=== PATIENT | female | born 1975 | race Two or more races ===

== ENCOUNTER 2024-06-13 10:07 | Outpatient (AMB) | payer OTHER, SELFPAY ==
--- NOTE | 2024-06-13 10:10 | A.OFFVIS_ITS ---
Vital Signs 06/13/24 10:11 Height 5 ft 4 in Weight 158 lb BMI 27.1 BP 108/68 Blood Pressure Location Lt brachial Position Sitting Pulse 95 Pulse Oximetry (%) 98 Oxygen Delivery Method Room Air Intake Visit Reasons: Colonoscopy Screening Intake Note: New consult for colo screening. FMHx (multiple). Genetic testing done by Gen Surg. Patient denies any GI issues for today Supervisor Production Department Required: No Accompanied by: Self / Same As Patient Allergies No Known Allergies Allergy (Verified 06/13/24 10:09) HPI HPI Colonoscopy Screening: Details: 49 year old? female with past medical history of anemia, personal history of malignant neoplasm of the cervix, family history of CRC is here today for pre colonoscopy screening.? Patient was sent to us by her PCP.? This is her first colonoscopy screening.? Patient denies any gastrointestinal symptoms in the past or at present.? Family history of CRC. Patient reports that her mom 2 years ago was diagnosed with colon cancer via colonoscopy. Patient reports that she underwent immediate surgery to remove the cancer.? Denies history of difficulty with sedation or anesthesia in the past.? Negative for history of sleep apnea.? Denies any history of cardiac, renal, pulmonary, or hepatic disease.?? No history of infectious? diseases like hepatitis A, B, C, HIV or tuberculosis.? Patient is not on any anticoagulation [facility] Medical History (Updated 05/04/24 @ 14:40 by Gela Carter) Anemia Torn rotator cuff Tendonitis Cervical cancer Surgical History H/O cone biopsy of cervix Family History Father Mental health disorder Hypertension High cholesterol Asthma Mother Cancer Thyroid disorder Maternal Grandfather Cancer Sister Hypertension Asthma Thyroid disorder Brother Asthma Social History Household Members: Spouse Both parents involved: No Caregiver staying overnight: No Housing: House Are you a primary home care manager rn to a significant other at home: No Do you presently have visiting nurse or other home services: No 75 years or older and lives alone: No Alcohol intake: current Alcohol intake frequency: a few times a month Patient Tobacco Use Status: Never used Tobacco e-Cigarette/Vaping Use: Never Used Second Hand Smoke Exposure: No service: No Current occupational status: employed Current occupation: real estte Cognitive needs: No Hearing needs: No Vision needs: Yes (wear contacts) Review of Systems Const Denies weight gain and Denies weight loss ENT Reports no additional complaints, Denies dysphagia and Denies odynophagia Card Reports no additional complaints Resp Reports no additional complaints GI Denies abdominal pain, Denies belching, Denies melena, Denies bloating, Denies change in bowel habits, Denies dysphagia, Denies excessive flatus, Denies dyspepsia, Denies heartburn, Denies diarrhea, Denies loose stools, Denies nausea, Denies odynophagia and Denies vomiting Musc Reports no additional complaints Neuro Reports no additional complaints Psych Reports no additional complaints Endo Reports no additional complaints Physical Exam Const General: healthy appearing, no acute distress and well developed Nutritional Appearance: well nourished Orientation/consciousness: patient oriented x3 Resp Effort & Inspection: normal respiratory effort, able to speak in complete sentences, no tracheal deviation and symmetric chest movement Auscultation: clear to auscultation bilaterally Cardio Rate: regular rate GI Inspection: Yes normal to inspection and No distended Palpation (GI): Soft to palpation, not firm, nontender and No hepatosplenomegaly present Auscultation: normal bowel sounds General: Yes no CVA tenderness Back/Spine/Pelvis Back: no CVA tenderness Skin General skin exam: elasticity normal, turgor normal and dry skin Neuro General: patient oriented x3 Psych Appearance: grossly normal Mental Status: mental status grossly normal Assessment & Plan Assessment & Plan (1) Family history of colon cancer: Comment: mom Code(s): Z80.0 - Family history of malignant neoplasm of digestive organs Category: Medical (2) Screen for colon cancer: Code(s): Z12.11 - Encounter for screening for malignant neoplasm of colon Plan Patient denies any GI, cardiac or respiratory symptoms.? Denies any issues with anesthesia in the past.? Denies any history of sleep apnea.? No history infectious diseases in the past or present.? Not on any anticoagulation therapy.? Family history of CRC. Patient denies melena, hematochezia, unintentional weight loss or ribbon like stools.? Discussed at length the pre- procedure,? prep, diet & medications as well as what to expect prior, during and after the procedure.?? Stressed the importance of good bowel prep.? Recommended the use of Vaseline or Calmoseptine OTC & baby wipes with bowel movements to promote comfort.? ?Patient verbalizes understanding and agrees to plan of care.? She was given the opportunity to ask questions and all questions answered.? We will see her after the procedure.? Medications: New bisacodyl (Dulcolax (bisacodyl)) take 4 tabs at noon the day before your colonoscopy 20 mg (4 x 5 mg) PO ONCE 1 day 4 tabs 0RF constipation Z12.11 - Encounter for screening for malignant neoplasm of colon polyethylene glycol 3350 (Miralax) As directed by gastro[facility]ology department at [facility] 238 grams PO ONCE 238 grams 0RF Z12.11 - Encounter for screening for malignant neoplasm of colon Coding Level of Care Code New Pt Level 3 (08684) Diagnoses Family history of colon cancer Z80.0 Screen for colon cancer Z12.11 Time Spent (min) 40 Comment 30 minutes spent with patient and additional 10 minutes spent reviewing her records
[2024-06-13 10:11] VITALS: BP 108/68; PULSE 95; O2SAT 98; BMI 27.1
--- OUTSIDE RECORDS SUMMARY | 2024-06-13 11:49 | XMS_ITS | Clinical Summary ---
Author Organization [facility] Address [address] [place] [address] Care Team Providers Care Director Of Land Acquisition Name Role Phone Nick Bonilla Primary Care Provider [phone] Surgical History Surgery Date Site/Laterality Comments CERVICAL BIOPSY W/ LOOP ELECTRODE EXCISION PROCEDURE: HISTORICAL CONE BIOPSY Family History Medical History Relation Name Comments No Known Problems Brother No Known Problems Daughter No Known Problems Father No Known Problems Maternal Grandfather No Known Problems Maternal Grandmother No Known Problems Mother No Known Problems Other No Known Problems Paternal Grandfather No Known Problems Paternal Grandmother No Known Problems Sister 1 No Known Problems Sister 2 Breast cancer Neg Hx Relation Name Status Comments Brother Alive asthma Daughter Father Alive htn, high doe sterol Maternal Grandfather Maternal Grandmother Alive pacemak er Mother Alive hypothyroid. la p band for morbid obesity Other Paternal Grandfather Paternal Grandmother Alive pacemak er Sister 1 Alive asthma Sister 2 Alive healthy Social History Tobacco Use Types Packs/Day Years Used Date Smoking Tobacco: Former Cigarettes Q uit: 12/15/2014 Smokeless Tobacco: Never Alcohol Use Standard Drinks/Week Comments Yes 4.2 (1 standard drink = 0.6 oz p ure alcohol) Comments Unknown Sex and Gender Information Value Date Recorded Sex Assigned at Not on file Legal Sex Female 9:24 PM EST Gender Identity Not on file Sexual Orientation Not on file Obstetrics History Plan of Treatment Upcoming Encounters Date Type Department Care Team ([facility] Contact Info) Description 11/29/2024 8:00 AM EDT Appointment Radiology Department [address] [address] Health Maintenance Due Date Last Done Comments Hepatitis B Vaccines (1 of 3 - 19+ 3-dose series) 1995 Cervical Cancer Screening: Pap Smear 1997 Colorectal Cancer Screening: Colonoscopy 02/15/2022 Depression Screening 02/15/2022 HIV Screening 02/15/2022 Hepatitis C Screening 02/15/2022 Social Influencers of Health Screening 02/15/2022 COVID-19 Vaccine ( - season) 2023 DTaP,Tdap,and Td Vaccines (3 - Td or Tdap) 01/31/2024 01/30/2014, 09/22/2008 Influenza Vaccine (Season Ended) 2024 01/09/2020, 01/28/2016, 12/30/2012 Breast Cancer Screening 11/25/2025 11/26/19, 11/26/2023, 05/06/2022, Additional history exists HIB Vaccines Aged Out No longer eligi ble based on patient's age to complete this topic HPV Vaccines Aged Out No longer eligi ble based on patient's age to complete this topic Hepatitis A Vaccines Aged Out No long er eligible based on patient's age to complete this topic IPV Vaccines Aged Out No longer eligi ble based on patient's age to complete this topic MMR Vaccines Aged Out No longer eligi ble based on patient's age to complete this topic Meningococcal ACWY Vaccine Aged Out N o longer eligible based on patient's age to complete this topic Meningococcal B Vacine Aged Out No lo nger eligible based on patient's age to complete this topic Pneumococcal Vaccine: Pediatrics (0 to 5 Years) and At-Risk Patients (6 to 64 Years) Aged Out No longer eligible based on patient's age to complete this topic RSV Immunization Patients Under 20 months Aged Out No longer eligible based on patient's age to complete this topic Varicella Vaccines Aged Out No longer eligible based on patient's age to complete this topic Procedures Procedure Name Priority Date/Time Associated Diagnosis Comments SCREENING MAMMOGRAPHY BI 2-VIEW BREAST INC CAD Routine 11/26/2023 10:25 AM EDT Encounter for screening mammogram for malignant neoplasm of breast from Last 3 Months or Most Recently Relevant to Health Maintenance Results * SCREENING MAMMOGRAPHY BI 2-VIEW BREAST INC CAD (11/26/2023 10:25 AM EDT) Anatomical Region Laterality Modality Radiographic Glory ging 05/06/2022 6:22 PM EST Narrative 11/26/2023 5:43 PM EDT This is a summary report. The complete report is available in the patient's medical record. If you cannot access the medical record, please contact the sending organization for a detailed fax or copy. Exam: Screening mammogram Findings: Digital bilateral full-field screening mammography is performed with tomosynthesis and interpreted with the aid of computer-aided detection. ??Comparison is made with 04/16/2022 and as far back as 11/25/2018. Breast parenchyma is extremely dense, limiting mammographic sensitivity. ??No new suspicious mass, architectural distortion, or suspicious calcifications. Impression: No mammographic evidence of malignancy. BI-RADS 1 - negative [address] [address] Procedure Note Lorraine Alcala MD - 12/23/2023 This is a summary report. The complete report is available in thepatient's medical record. If you cannot access the medical record, pleasecontact the sending organization for a detailed fax or copy. Exam: Screening mammogram Findings: Digital bilateral full-field screening mammography is performedwith tomosynthesis and interpreted with the aid of computer-aideddetection. Comparison is made with 04/16/2022 and as far back as11/25/2018. Breast parenchyma is extremely dense, limiting mammographic sensitivity.No new suspicious mass, architectural distortion, or suspiciouscalcifications. Impression: No mammographic evidence of malignancy. BI-RADS 1 - negative [address] [id number] Wilda Jones DONOR RELATIONS OFFICER IMG XR PROCEDURES Edited Re sult - Final from Last 3 Months or Most Recently Relevant to Health Maintenance Care Teams Director Of Land Acquisition Relationship Specialty Start Date End Date Nick Bonilla DO PCP - General Internal Medicine 02/21/21
--- OUTSIDE RECORDS SUMMARY | 2024-06-13 11:49 | XMS_ITS | Data Portability ---
Author Organization [facility] Address [address] [place] [address] Care Team Providers Care Broadcast Transmitter Operator Name Role Phone MARIAM JOHN Primary Care Provider [phone] MARCIAL WONG Referring Provider Assessment Encounter Date Assessment Date Assessment LastModified by Organization Details LastModified Time 02/10/2024 02/10/2024 The above findings suggest lateral epicondylitis and biceps tendinitis. We discussed pathology and expected prognosis today. Treatment options include conservative treatment, physical therapy, and bracing. I showed them some exercises to work on today and provided a printout of home exercise. This is a self-limiting process however it often takes 6 months to one year for the symptoms to resolve. I recommend a tennis elbow counterforce brace or a wrist splint for pain control during activities. I explained to them that even if they are having discomfort, it is okay to work through the pain. I do not recommend a cortisone injection as it may provide some temporary relief but clinical data shows that it will prolong the overall course of symptoms. We discussed icing and anti-inflammator ies. I will send a prescription for meloxicam. We discussed side effects which include GI upset, she should take the medication with a meal. If she starts experience side effects, she should stop taking the medication. We discussed formal physical therapy, the patient would like to start with home exercises. I will see them back in 2 months if symptoms do not improve. All of her questions were answered, she is in agreement with plan. alexy Not available 02/10/2024 11:58:26 Plan of Treatment Reminders Order Date Submit Date Provider Last Modified By Organization Details Last Modified Time Details Appointments None recorded . Lab None recorded . Referral None recorded . Procedures None recorded . Surgeries None recorded . Imaging XR, elbow, 3 or more view 2023 [facility], [address], [place], [address], 17:14:35 Medication Orders meloxica m 15 mg tablet 2023 [id number], [address] [place], [address], 11:58:42 Patient TargetsNo targets recorded. Patient Instructions Encounter Date Encounter Id Patient Instructions Last Modified By Organization Details Last Modified Time 02/10/2024 [id number] biceps tendiniti s: exercises lschindelar Not available 02/10/2024 11:58:40 tennis elbow: exercises lschindelar Not available 02/10/2024 11:58:40 3 views of the right elbow were ordered and reviewed today, this demonstrates no acute abnormalities. There is maintained joint spaces. There is anatomic alignment of the bones. Good mineralization of the bones. [email or web address] Not available 02/10/2024 11:57:40 Reason for Referral None Reported. Problems Name Problem SNOMED Code Status Onset Date Resolution Date Notes Provider Name and Address Organization Details Recorded Time Tendinitis of right biceps brachii Active 2023 Eleni gardner MD [address], [place], [address], [place] [facility] 4 11:45:41 Lateral epicondylit is of right humerus 8289571289849 07 Active [address], [place], [address], [place] [facility] 4 11:46:07 Problem Notes None recorded. Medical Equipment None Reported. Allergies No known drug allergies Medications Name Sig Start Date Stop Date Status Note LastModified by Organization Details LastModified Time meloxicam 15 mg tablet Take 1 tablet every day by oral route. 025 active Not Available Not Available Not Avai lable Vitals Date Recorded Body height Body mass index (BMI) Body weight Provider Name and Address Organization Details Last Updated DateTime 02/10/2024 162.56 cm 24 kg/m2 [address]188.[address] [place] [facility] 02/10/2024 11:27:17 Social History Question Answer Notes LastModified by Organizat ion Details LastModified Time What Is Your Level Of Alcohol Consumption? Occasional Information not available 02/10/2024 Do You Or Have You Ever Used E-cigarettes Or Vape? Former User Of Electronic Cigarettes Information not available 02/10/2024 Do You Use Any Illicit Or Recreational Drugs? Yes Information not available 02/10/2024 Do You Or Have You Ever Used Any Other Forms Of Tobacco Or Nicotine? Yes Information not available 02/10/2024 Sex: Unknown Functional Status None recorded. Mental Status None recorded. Family History Nothing Reported. Medical History Condition Response Anemia Y Gynecological HistoryNo gynecological history recorded. Obstetrics History GPAL:G 0 P 0 0 0 0 Past Encounters Encounter ID Performer Location Encounter Start Date Encounter Closed Date Diagnosis/Indication Diagnosis SNOMED-CT Code Diagnosis ICD10 Code Diagnosis Note [id number] Eleni Rosales MD [address] [address] 02/10/2024 11:15:43 02/10/2024 11:52:33 Pain in elbow 25403417 M25.521 Tendinitis of right biceps brachii 2171246333 7107 M75.21 Lateral ep icondylitis of right humerus 1558691251 50994 M77.11 Health Concerns Section Related Observation LastModified by Organization Detai ls LastModified Time None Recorded Concern Status LastModified by Organization Details LastModified Time None Recorded Advance Directives Directive None Recorded Payers Encounter Date Sequence Insurance Name Policy Number Policy Woodard Covered Member ID Woodard Member ID Guarantor Name 02/10/2024 1 [facility] [id number] Fiona Mayers [id number] Fiona Mayers Notes Date Note Type Note Provider Name and Address Organization Details Recorded Time 02/10/2024 text/html This is a 48-year-old qhtpe-tdhe-pedvzu nt female who presents with right elbow and forearm pain. This has been going on for a number of months. She notes no discrete injury however she does work out a lot which tends to exacerbate the pain. She also works on the laptop which is painful for her. She describes pain as a dull ache. It occurs mostly during activity. She denies any nocturnal symptoms. She denies any numbness or tingling. She has tried Advil with mild relief. Eleni Rosales MD [address], [place], [address], [place] [facility] 02/10/2024 11:59:01 OBGyn Episode No OBEpisode recorded.
== END 2024-06-13 10:46 | disposition home or self-care (01) ==
LOC: HO.HGI 10:08
PROVIDERS: PCP Nurse Practitioner Family; Visit Provider Nurse Practitioner Family
DX: Z01.818 Encounter for other preprocedural examination (principal); Z12.11 Encounter for screening for malignant neoplasm of colon; Z80.0 Family history of malignant neoplasm of digestive organs
CPT/HCPCS: S0285

== ENCOUNTER → 2024-06-13 10:07 | Outpatient (BNVA) | payer OTHER, SELFPAY | PROVIDERS: PCP Nurse Practitioner Family; Visit Provider Nurse Practitioner Family ==

== ENCOUNTER 2024-10-17 11:25 | Day surgery (SDC) | payer OTHER, SELFPAY ==
--- OUTSIDE RECORDS SUMMARY | 2024-09-20 13:01 | XMS_ITS | Clinical Summary ---
Author Organization [facility] Address [address] [place] [address] Care Team Providers Care Art Handler Name Role Phone Nick Bonilla Primary Care Provider [phone] Surgical History Surgery Date Site/Laterality Comments CERVICAL [...] Upcoming Encounters Date Type Department Care Team ([facility] Contact Info) Description 11/29/2024 8:00 AM EDT Appointment Radiology Department [address] [address] Health Maintenance Due Date Last Done Comments Hepatitis B Vaccines (1 of 3 - 19+ 3-dose series) 1995 Cervical Cancer Screening: Pap Smear 1997 Colorectal Cancer Screening: Colonoscopy 02/15/2022 Depression Screening 02/15/2022 HIV Screening 02/15/2022 Hepatitis C Screening 02/15/2022 Social Influencers of Health Screening 02/15/2022 COVID-19 Vaccine (1 - season) 2023 DTaP,Tdap,and Td Vaccines (3 - Td or Tdap) 01/31/2024 01/30/2014, 09/22/2008 Influenza Vaccine (#1) 2024 0, 01/28/2016, 12/30/2012 Breast Cancer Screening 11/25/2025 11/26/19 24, 11/26/2023, 05/06/2022, Additional history exists HIB Vaccines [...] age to complete this topic Meningococcal B Vaccine Aged Out No l onger eligible based on patient's age to complete this topic Pneumococcal Vaccine: Pediatrics (0 to 5 Years) and At-Risk Patients (6 to 49 Years) Aged Out No longer eligible based [...] interpreted with the aid of computer-aided detection. Comparison is made with 04/16/2022 and as far back as 11/25/2018. Breast parenchyma is extremely dense, limiting mammographic sensitivity. No new suspicious mass, architectural distortion, or suspicious calcifications. Impression: No mammographic evidence of malignancy. BI-RADS 1 - negative [address] [address] Procedure Note Lorraine Alcala MD - 12/23/2023 [...] evidence of malignancy. BI-RADS 1 - negative [address] [address] Wilda COREAP IMG XR PROCEDURES Edited Re sult - Final from Last 3 Months or Most Recently Relevant to Health Maintenance Care Teams Art Handler Relationship Specialty Start Date End Date Nick Bonilla DO PCP - General Internal Medicine 02/21/21
--- OUTSIDE RECORDS SUMMARY | 2024-09-20 13:01 | XMS_ITS ---
Author Name [facility] Organization Unknown History of Medication Use Medication Directions Dispensed Refills Start Date End Date Stat us meloxicam 15 mg tablet a ctive Problems Problem Status Onset Date Problem Type Date of Resoluti on Source Lateral epicondylitis of right humerus active 2024-02-10 ProblemAct [facility] Tendinitis of right biceps brachii active 2024-02-10 ProblemAct [facility] Encounters Encounter Type Encounter Reason Primary Diagnosis Location Date [facility] 2024 [facility] 04/13/2024 [facility]ulatory [facility] 02/24/2024 Ambulatory [facility] 02/11/2024 Ambulatory [facility] 02/10/2024 Ambulatory [facility] 02/10/2024 Ambulatory [facility] 02/10/2024 Ambulatory [facility] 02/10/2024 Ambulatory [facility] 02/10/2024 Ambulatory [facility] 02/09/2024 Ambulatory [facility] 02/01/2024 Care Team Organization Name Specialty Phone Email Start Date End [facility] 08/30/2024
--- NOTE | 2024-10-14 10:07 | HO.ANESPROP2 ---
Documented by User: Roberta Fox NP 10/14/24 10:07 HPI - Anesthesia Eval Consult details Narrative: 49yo F for Colonoscopy PMFSH Active Problems Active Problems: All Active Problems Family history of genetic disease carrier (Acute) Mild anemia (Acute) Personal history of malignant neoplasm of cervix uteri (Acute) Family history of colon cancer (Acute) Past Medical History Medical History (Updated 05/04/24 @ 14:40 by Gela Carter) Anemia Torn rotator cuff Tendonitis Cervical cancer Family History Family History Father Mental health disorder Hypertension High cholesterol Asthma Mother Cancer Thyroid disorder Maternal Grandfather Cancer Sister Hypertension Asthma Thyroid disorder Brother Asthma Surgical History Surgical History H/O cone biopsy of cervix Social History Social History Household Members: Spouse Housing: House Are you a primary personal care home administrator to a significant other at home: No Do you presently have visiting nurse or other home services: No Alcohol intake: current Alcohol intake frequency: a few times a week Patient Tobacco Use Status: Former Tobacco user e-Cigarette/Vaping Use: Never Used Second Hand Smoke Exposure: No Use of substances other than those prescribed or required for medical reasons: Yes Substance Use Frequency: Weekly Have you been hit, kicked, punched, or otherwise hurt by someone within the past year? If so, by whom?: No Are you DNR?: No Advance Directives: No Advance Directives Information Provided: Yes Patient : No FDLMP: 09/25/2024 : No Poor oral hygiene: No service: No Current occupational status: employed Current occupation: real estte Cognitive needs: No Hearing needs: No Vision needs: Yes (wear contacts) Meds Allergies Allergy/AdvReac Type Severity Reaction Status Date / Time No Known Allergies Allergy Verified 10/17/24 11:57 Home Medications ?Medication ?Instructions ?Recorded ?Confirmed ?Last Taken ?Type medroxyprogesterone 10 mg tablet 10 mg PO DAILY 03/16/24 10/17/24 Unknown History multivitamin 1 tab PO DAILY 06/13/24 10/17/24 Unknown History Assessment and Plan Assessment Anesthesia Assessment: Chart Reviewed Documented by User: Pina Urbano MD 10/17/24 13:12 [facility] Past Medical History Medical History (Updated 05/04/24 @ 14:40 by Gela Carter) Anemia Torn rotator cuff Tendonitis Cervical cancer Family History Family History Father Mental health disorder Hypertension High cholesterol Asthma Mother Cancer Thyroid disorder Maternal Grandfather Cancer Sister Hypertension Asthma Thyroid disorder Brother Asthma Family history of problems with anesthesia: No Surgical History Surgical History H/O cone biopsy of cervix History of Problems with Anesthesia: No Social History Social History Household Members: Spouse Housing: House Are you a primary personal care home administrator to a significant other at home: No Do you presently have visiting nurse or other home services: No Alcohol intake: current Alcohol intake frequency: a few times a week Patient Tobacco Use Status: Former Tobacco user e-Cigarette/Vaping Use: Never Used Second Hand Smoke Exposure: No Use of substances other than those prescribed or required for medical reasons: Yes Substance Use Frequency: Weekly Have you been hit, kicked, punched, or otherwise hurt by someone within the past year? If so, by whom?: No Are you DNR?: No Advance Directives: No Advance Directives Information Provided: Yes Patient : No FDLMP: 09/25/2024 : No Poor oral hygiene: No service: No Current occupational status: employed Current occupation: real estte Cognitive needs: No Hearing needs: No Vision needs: Yes (wear contacts) Meds Allergies Allergy/AdvReac Type Severity Reaction Status Date / Time No Known Allergies Allergy Verified 10/17/24 11:57 Home Medications ?Medication ?Instructions ?Recorded ?Confirmed ?Last Taken ?Type medroxyprogesterone 10 mg tablet 10 mg PO DAILY 03/16/24 10/17/24 Unknown History multivitamin 1 tab PO DAILY 06/13/24 10/17/24 Unknown History Exam Airway Mallampati Class: II TM Dist: >3cm Neck ROM: Full Assessment and Plan Assessment Anesthesia Assessment: Anesthesia Plan Discussed Final Anesthetic Review Family History of Problems with Anesthesia: No History of Problems with Anesthesia: No NPO: Yes ASA Class: II Final Preanesthetic Review: No Changes in Pt Med Stat, Meds/Allgs Chart Reviewed, Consent Obtained/Reviewed and Anes Risks/Benef Reviewed Patient Risk: Low Procedure Risk: Low Anesthetic Plan Anesthetic Plan: TIVA Disposition: Standard PACU
--- NOTE | 2024-10-17 11:58 | MHC.SHP ---
Pre-Procedural Eval Section A - 24 Hr Update-Section A only Date of Service: 10/17/24 The patient is an INPATIENT: No The patient has been examined within 24 hours of the surgical procedure. The History & Physical has been completed within 30 days and I have reviewed it.: No Section B - Complete if H&P > 30 days Chief Complaint: screening, family history of colon cancer Relevant Family History (Specify if Yes): Yes Relevant Social History: None Present Medications: see Short Stay Collaborative assessment Medical History: Significant History (Anemia Torn rotator cuff Tendonitis Cervical cancer) History of Previous Operations: Relevant previous surgery/procedure and date(s) (H/O cone biopsy of cervix) Allergies: Allergies Allergy/AdvReac Type Severity Reaction Status Date / Time No Known Allergies Allergy Verified 10/17/24 11:57 Review of Systems Sugical H&P ROS: Negative: Constitution, Cardiovascular, Respiratory and Gastrointestinal Exam Surgical H&P Exam: Normal: Heart, Normal: Lungs, Normal: Extremities and Normal: Abdomen Plan Diagnosis/Plan: Unchanged I have reviewed the history and physical and performed a pertinent physical examination on my patient. No changes have occurred unless specified. Time Spent With Patient Time: Total time managing care of this patient today ____ minutes.
[2024-10-17 12:05] VITALS: BP 126/82; PULSE 79; RESP 12; TEMP 36.9; O2SAT 99; BMI 21.8
[2024-10-17] MEDS: Lactated Ringers 1,000 ML 100 ML IVCONT (12:16)
[2024-10-17 12:19] LABS: UPreg QC Valid YES
--- NOTE | 2024-10-17 14:13 | HO.OPN-COLON ---
Colonoscopy Operative Note Operative Note Date of Service: 10/17/24 Narrative: COLONOSCOPY TILL CECUM WITH SNARE POLYPECTOMY, SUBMUCOSAL INJECTION AND HEMOCLIP PLACEMENT Pre-op diagnosis: Colon cancer screening (First colon), family history of colon cancer (Mom). Post-op diagnosis:? Multiple colon polyps, melanosis coli, Diverticulosis, hemorrhoids Endoscopist:? Freya Okeefe MD Anesthesia:?MAC Consent: Indications for the procedure and potential complications of bleeding, perforation, reaction to medications and missed diagnosis were discussed with the patient and informed consent was obtained. Instrument: Olympus PCF H 190 L variable stiffness pediatric colonoscope Monitoring: Vital signs and clinical assessment, intermittent blood pressure monitoring, continuous EKG monitoring, Pulse oximetry and Carbon Dioxide monitoring were done throughout the procedure. Please see anesthesia flowsheet. Colon withdrawl time was 35 minutes. Procedure: The patient was placed in the left lateral decubitis position and pre-procedure medications were administered. After a digital rectal examination of the ano-rectum, the video colonoscope was inserted into the rectum and advanced through the colon to the cecum. The colonoscope was slowly withdrawn in a retrograde panoramic fashion and the colon mucosa was carefully examined including a retroflexed view of the rectum. Findings and interventions are described below. Procedure Difficulty: without difficulty Findings: Terminal Ileum: Not evaluated Cecum: Normal Ascending Colon: A 1.5 to 2 cms flat polyp at 70 cms. Polyp was raised with 3 cc of Eleview and removed with a hot snare and polypectomy site was marked by Sue ink. A 1.5 to 2 cms flat polyp in the distal AC. Polyp was raised with 2 cc of Eleview and removed with a hot snare. Polypectomy sites was closed with 1 hemoclip. A 10-12 mm sessile polyp in the distal ascending colon - removed with a hot snare. Melanosis coli throughout the entire colon - biopsies were obtained from the right colon. Transverse Colon: A 2 cms sessile polyp at 50 cms - removed with a hot snare. Polypectomy site was closed with 1 hemoclip and marked with Sue ink. A 12 mm sessile polyp - removed with a hot snare. A 15 mm bilobed sessile polyp. Polyp was removed with a hot snare and polypectomy site was closed with 1 hemoclip. Melanosis coli throughout the entire colon Descending Colon: Melanosis coli throughout the entire colon Sigmoid Colon: A 15 to 18 mm sessile polyp - removed with a hot snare. A 10 mm sessile polyp - removed with a hot snare. Moderate diverticulosis Rectum: Normal Ano-rectum: Moderate internal hemorrhoids Colon preparation: Good after copious irrigation. [place] Bowel Preparation Scale Right colon; 2 Transverse colon: 2 Left colon; 2 (0 = Unprepared colon segment with mucosa not seen due to solid stool that cannot be cleared. 1 = Portion of mucosa of the colon segment seen, but other areas of the colon segment not well seen due to staining, residual stool and/or opaque liquid. 2 = Minor amount of residual staining, small fragments of stool and/or opaque liquid, but mucosa of colon segment seen well. 3 = Entire mucosa of colon segment seen well with no residual staining, small fragments of stool or opaque liquid) Impression and Post Procedure Diagnosis: Colonoscopy Findings: Eight medium sized polyps were removed A few smaller polyps in the left colon - not removed due to excessive length of the procedure. Melanosis coli throughout the entire colon - biopsies were obtained from the right colon. Moderate diverticulosis seen in the sigmoid colon small hemorrhoids on retroflexed exam. Plan: Pt has a FU appointment on 11/04/24 with Rut Shaw NP Repeat Colonoscopy in 6 to 12 months (60 min procedure) if polyps are adenomatous and 10 year if polyps are hyperplastic. (Dulcolax 10 mg daily starting 5 days prior to next colonoscopy appointment) Above findings were reviewed with the patient and relevant handouts were given and the discharge area. BIOPSIES SHOWED: A. Colon, sigmoid, polypectomy: Tubular adenoma; negative for high-grade dysplasia. B. Colon, right, biopsy: Colonic mucosa with melanosis coli otherwise within normal limits; negative for active, chronic or microscopic colitis. C. Colon, ascending, polypectomy x2: Tubular adenoma (2); negative for high-grade dysplasia. D. Colon, ascending, 70 cm, polypectomy: Tubular adenoma; negative for high-grade dysplasia. E. Colon, transverse, 60 cm, polypectomy: Tubular adenoma; negative for high-grade dysplasia. F. Colon, transverse, 50 cm, polypectomy: Tubular adenoma; negative for high-grade dysplasia. G. Colon, sigmoid, 40 cm, polypectomy: Tubular adenoma; negative for high-grade dysplasia Letter sent to the patient with biopsy results. Patient was placed on the colonoscopy recall list for repeat colonoscopy in 6-12 months.
[2024-10-17 14:17] VITALS: BP 100/61; PULSE 78; RESP 14; TEMP 36.7; O2SAT 99
[2024-10-17 14:30] VITALS: BP 116/71; PULSE 78; RESP 16; O2SAT 100
[2024-10-17 14:41] VITALS: BP 109/74; PULSE 69; RESP 16; TEMP 37; O2SAT 100
== END 2024-10-17 15:09 | disposition home or self-care (01) ==
PROVIDERS: Nurse Practitioner; PCP Nurse Practitioner Family; Visit Provider Internal Medicine Gastroenterology
PROC: 0DJD8ZZ Inspection of Lower Intestinal Tract, Via Natural or Artificial Opening Endoscopic (ICD-10-PCS; CPT 45378; principal; 2024-10-17 13:00)
DX: Z12.11 Encounter for screening for malignant neoplasm of colon (principal); Z80.0 Family history of malignant neoplasm of digestive organs; D12.2 Benign neoplasm of ascending colon; D12.3 Benign neoplasm of transverse colon; D12.5 Benign neoplasm of sigmoid colon; K63.5 Polyp of colon; K63.89 Other specified diseases of intestine; K57.30 Diverticulosis of large intestine without perforation or abscess without bleeding; K64.8 Other hemorrhoids; D64.9 Anemia, unspecified; Z85.41 Personal history of malignant neoplasm of cervix uteri; Z79.899 Other long term (current) drug therapy; Z98.890 Other specified postprocedural states; Z87.891 Personal history of nicotine dependence
CPT/HCPCS: 45385; 45381; 81025; 88305; J2003; J2704

== ENCOUNTER → 2024-10-17 11:25 | Outpatient (BNV) | payer OTHER, SELFPAY | PROVIDERS: PCP Nurse Practitioner Family; Visit Provider Internal Medicine Gastroenterology | DX: Z12.11 Encounter for screening for malignant neoplasm of colon (principal); D12.2 Benign neoplasm of ascending colon; D12.3 Benign neoplasm of transverse colon; D12.5 Benign neoplasm of sigmoid colon; K63.89 Other specified diseases of intestine; K57.30 Diverticulosis of large intestine without perforation or abscess without bleeding; K64.8 Other hemorrhoids | CPT/HCPCS: 45381; 45385 ==

== ENCOUNTER 2024-12-08 10:29 | Outpatient (AMB) | payer OTHER, SELFPAY ==
--- NOTE | 2024-12-08 10:32 | MHC.PC.OV ---
Vital Signs 12/08/24 10:35 Height 5 ft 4 in Weight 130 lb 6 oz BMI 22.4 BP 117/67 Blood Pressure Location Lt brachial Position Sitting Respiration 12 Pulse 95 Pulse Source Pulse Oximeter Temp 97.2 F Temp Source Oral Pulse Oximetry (%) 98 Oxygen Delivery Method Room Air Intake Visit Reasons: Surgery on 12/27/24 Intake Note: Pre op surgery on 12/27/24. Maintenance Equipment Operator Required: No Allergies No Known Allergies Allergy (Verified 12/08/24 10:33) Medication List - Last Reconciled 12/08/24 by Wilda Jones, LOADING DOCK [employer]- multivitamin 1 tab PO DAILY Tobacco use date assessed: 12/08/24 Dental Screening Dental Screen Date: 12/08/24 Did you have a dental visit in the last 12 months?: Yes Did you have a dental problem in the last 6 months where you did not have access to dental care?: No Was dental information given to patient?: Patient has dentist HPI HPI Comments History of Present Illness Details 49 y/o F with cervical cancer s/p cone bx age 21, mild anemia, perimenopausal, Family hx of colon ca, family hx of high risk genetic mutation, former smoker Familyhx: Mom colon ca age 62, MGF renal cell ca, sister + for MUYTH gene mutation associated with polyposis syndrome (map) Surgical hx: cone bx Social: No children, , lives w/ , commercial real estate attorney; exercises regularly Health Maintenance: Colon 10/2024, multiple polyps, repeat 6- 12 mo [facility] Mammo Nov 26, 2023 @ [place] DEXA NA PAP Mar 25, 2023 @ [facility] Obn Dr Dlol Tdap 2024 Flu Specialists: CORROSION CONTROL TECHNICIAN [facility] Here today for preoperative clearance. Surgery Type: Hallux valgus (acquired), right foot Anesthesia Type: General Surgeon: Dr Echevarria Date: 12/27/24 Any past surgical procedures: Y see above Any complications from anesthesia or in post-op period:has never had general anesthesia ASA or NSAID Use: None Current smoker: No Alcohol use: No Drug use: marijuana occasional - recommend cessation METs: > 4 climb flight of stairs, golf, walk, yardwork Medical history: Asthma No COPD No Obesity BMI 22.4 Diabetes No [place] < 6 weeks, unstable angina, CHF, severe valve disease No ROS: Denies fever, chills, sick contacts, cough, chest pain, sob. Physical Exam General: Cooperative, healthy appearing, comfortable, no acute distress and well developed Orientation: Patient oriented x3 Limitations: No limitations Head: Normal to inspection Respiratory: Normal respiratory effort and able to speak in complete sentences. Clear to auscultation bilaterally Cardiovascular: Regular rate and rhythm. Normal S1 and S2 Skin: No rashes or lesions noted Neuro: Patient oriented x3 Extremities: Normal to inspection, no swelling, + PP Testing CBC and CMP as below. Per call from Surgery group - no need for EKG RCRI is Class 0 Risk Stratification: 0.5% Patient is medically cleared to proceed. Education Aspirin and NSAIDS should be discontinued one week before surgery to prevent excessive bleeding. If you are a smoker, there is increase risk of post surgical complications. Cessation is encouraged. Follow up with surgeon and all recommendations pre and post operatively. [facility] Medical History (Updated 12/08/24 @ 10:52 by Wilda Jones, [facility]) Anemia Cervical cancer Tendonitis Torn rotator cuff Surgical History H/O cone biopsy of cervix Family History Father Mental health disorder Hypertension High cholesterol Asthma Mother Cancer Thyroid disorder Maternal Grandfather Cancer Sister Hypertension Asthma Thyroid disorder Brother Asthma Social History Household Members: Spouse Both parents involved: No Caregiver staying overnight: No Housing: House Are you a primary veterinarian laboratory animal care to a significant other at home: No Do you presently have visiting nurse or other home services: No 75 years or older and lives alone: No Alcohol intake: current Alcohol intake frequency: a few times a week Patient Tobacco Use Status: Former Tobacco user e-Cigarette/Vaping Use: Never Used Second Hand Smoke Exposure: No service: No Current occupational status: employed Current occupation: real estte Cognitive needs: No Hearing needs: No Vision needs: Yes (wear contacts) Questionnaire PHQ-9 Over the last 2 weeks, how often have you been bothered by any of the following problems? 1. Little interest or pleasure in doing things: not at all 2. Feeling down, depressed, or hopeless: not at all 3. Trouble falling or staying asleep, or sleeping too much: not at all 4. Feeling tired or having little energy: not at all 5. Poor appetite or overeating: not at all 6. Feeling bad about yourself - or that you are a failure or have let yourself or your family down: not at all 7. Trouble concentrating on things, such as reading the newspaper or watching television: not at all 8. Moving or speaking so slowly that other people could have noticed. Or the opposite - being so fidgety or restless that you have been moving around a lot more than usual: not at all 9. Thoughts that you would be better off or of hurting yourself in some way: not at all Total score: 0 Depression Screening Interpretation: Negative Depression Screening Done: Yes 58732 - PHQ-9 Billing: Yes Source: Developed by Drs. Dandre Galarza, Korina Boyd, Tom Graham and colleagues, with an educational david from [employer]. Thrive Questionnaire Date Thrive assessed: 12/08/24 I am a: Patient What is your living situation today?: I have a steady place to live Within the past 12 months, did the food you bought not last and you didn't have the money to get more?: Never true Within the past 12 months, did you worry whether your food would run out before you got money to buy more?: Never true Do you have trouble paying for medicines?: No Do you have trouble getting transportation to medical appointments?: No Do you have trouble paying your heating and electricity bill?: No Do you have trouble taking care of your child, family member or friend?: No Do you have trouble with day-to-day activities such as bathing, preparing meals, shopping, managing finances, etc.?: No Are you currently unemployed and looking for a job?: No Are you interested in more education?: No Please select the resources that you would like help with: None Currently or been in a relationship where the following occur: No concerns reported THRIVE Score: 0 AUDIT C Alcohol Use Questionnaire (AUDIT-C) 1. How often do you have a drink containing alcohol?: 2-4 times a month 2. How many drinks containing alcohol do you have on a typical day when you are drinking?: 1 or 2 3. How often do you have six or more drinks on one occasion?: Never Total Score: 2 Score Reviewed/Action Taken: Yes BONNY-7 AMB Questionnaire BONNY-7 Date BONNY - 7 assessed: 12/08/24 Feeling nervous, anxious, or on edge: 0 = Not at all Not being able to stop or control worryin = Not at all Worrying too much about different things: 0 = Not at all Trouble relaxin = Not at all Being so restless that it is hard to sit still: 0 = Not at all Becoming easily annoyed or irritable: 0 = Not at all Feeling afraid as if something awful might happen: 0 = Not at all Total BONNY-7 score (0-4 normal; 5-9 mild; 10-14 moderate; 15-21 severe): 0 Source: Developed by Drs. Dandre Galarza, Korina Boyd, Tom Graham and colleagues, with an educational david from [employer]. BONNY-7 Assessment Billing BONNY-7 Assessment Tool: BONNY-7 Assessment 98871 Physical exam (Primary Care) Vital Signs: Last Vital Signs Temp 97.2 F 12/08/24 10:35 Pulse 95 12/08/24 10:35 Resp 12 12/08/24 10:35 BP 117/67 12/08/24 10:35 Pulse Ox 98 12/08/24 10:35 Oxygen Delivery Method Room Air 12/08/24 10:35 BMI result Body Mass Index 22.4 Tobacco/Smoking Status: Tobacco use Status Tobacco use date assessed 12/08/24 12/08/24 10:36 Patient Tobacco Use Status Former Tobacco user 12/08/24 10:36 e-Cigarette/Vaping Use Never Used 12/08/24 10:36 PHQ-9: PHQ-9 Score PHQ-9: Total score 0 12/08/24 10:55 Depression Screening Interpretation: Negative Thrive Assessment: Date of Thrive Assessment Date Thrive assessed 12/08/24 12/08/24 10:36 Currently or been in a relationship where the following occur: No concerns reported Office Procedures Flu Questionnaire Does the patient have a severe egg allergy?: No Does the patient have severe life threatening allergies?: No Does the patient have a fever or illness today?: No Has the patient ever had Guillain-Marshall Syndrome?: No Has the patient ever had any past reaction to a flu shot?: No Immunizations Fluarix 5030-2016 (PF) 45 mcg (15 mcg x 3)/0.5 mL IM syringe Performing Provider: CYNTHIA Rebollar Performing Location: [facility] Family Medicine Administered by: Pawan Almaraz MA on 12/08/24 10:55 Dose Route Admin Location Dispensed Lot Number Expiration Date [facility] Computer Systems Architect 0.5 mL IM Right Deltoid 0.5 mL [id number] 09/05/25 [id number] [employer] VIS Given Date VIS Provided VIS Publication Date 12/08/24 Single Vaccine 24 Eligibility Eligibility Date Funding Source Not [facility] Eligible 12/08/24 Private Results Reviewed Results Reviewed: Laboratory 12/08/24 Result Units Range Interpretation Provider Comments White Blood Count 6.0 X10*3/uL (4.8-10.8) Red Blood Count 3.85 X10*6/uL (4.20-5.50) Low Hemoglobin 12.2 g/dl (12.0-16.0) Hematocrit 36.4 % (37.0-47.0) Low Mean Corpuscular Volume 94.5 fL (80.0-98.0) Mean Corpuscular Hemoglobin 31.7 pg (27.0-33.0) Mean Corpuscular Hemoglobin Concent 33.5 g/dl (31.0-35.0) Red Cell Distribution Width 11.7 % (11.0-16.0) Platelet Count 214 X10*3/uL (160-400) Mean Platelet Volume 11.5 fL (9.4-12.3) Nucleated RBC Absolute Count (auto) 0.000 X10*3/uL (0.0-0.012) Nucleated Red Blood Cells % (auto) 0.0 /100WBC (0.0-0.2) Sodium Level 140 mmol/L (135-145) Potassium Level 4.0 mmol/L (3.3-5.1) Chloride Level 109 mmol/L (96-108) High Carbon Dioxide Level 25 mmol/L (22-29) Anion Gap 10 (12-20) Low Blood Urea Nitrogen 15 mg/dL (9-16) Creatinine 0.80 mg/dL (0.5-1.4) Estimated Creatinine Clearance Calc Not Reportable Estimat Glomerular Filtration Rate > 60 Random Glucose 70 mg/dL (60-115) Calcium Level 9.2 mg/dL (8.4-10.2) Total Bilirubin 0.2 mg/dL (0.0-1.0) Aspartate Amino Transf (AST/SGOT) 28 U/L (5-31) Alanine Aminotransferase (ALT/SGPT) 25 U/L (0-31) Alkaline Phosphatase 41 U/L (39-117) Total Protein 7.0 g/dL (6.5-8.0) Albumin 4.3 g/dL (3.5-5.0) Coding Level of Care Code Est Pt Level 4 (59613) Complex EM visit Add On G2211 Diagnoses Pre-op exam Z01.818 Hallux valgus (acquired), right foot M20.11 Influenza vaccination administered at current visit Z23 Additional Codes BONNY-7 Assessment Billing - BONNY-7 Assessment Tool: BONNY-7 Assessment 66429 ([id number]) PHQ-9 - 68305 - PHQ-9 Billing: Yes ([id number]) Assessment & Plan Assessment & Plan (1) Pre-op exam: Code(s): Z01.818 - Encounter for other preprocedural examination Plan: Patient is medically cleared to proceed. (2) Hallux valgus (acquired), right foot: Code(s): M20.11 - Hallux valgus (acquired), right foot Category: Medical (3) Influenza vaccination administered at current visit: Code(s): Z23 - Encounter for immunization Category: Medical Plan . Orders: Orders Complete Blood Count no Diff Today Z01.818 - Encounter for other preprocedural examination Comprehensive Met. Panel Today Z01.818 - Encounter for other preprocedural examination Influenza 5324-1301 Immunization Today Z23 - Encounter for immunization
[2024-12-08 10:35] VITALS: BP 117/67; PULSE 95; RESP 12; TEMP 36.2; O2SAT 98; BMI 22.4
--- OUTSIDE RECORDS SUMMARY | 2024-12-08 12:13 | XMS_ITS | Clinical Summary ---
Author Organization [facility] [address] [place] [address] [place] [address] Phone Care Team Providers Care Analyst Business Analysis Name Role Phone Nick Bonilla DO Primary Care Provider [phone] Encounters Date Type Department Care Team Description 11/29/2024 8:00 AM EDT - 11/29/2024 11:59 PM EDT Hospital Encounter Radiology Department - [address] [phone] Encounter for screening mammogram for breast cancer Discharge Disposition: Home or Self Care from Last 3 Months Surgical History Surgery Date Site/Laterality Comments CERVICAL [...] = 0.6 oz p ure alcohol) Comments No Sex and Gender Information Value Date Recorded Sex Assigned at Not on file Legal Sex Female 9:24 PM EST Gender Identity Not on file Sexual Orientation Not on file Obstetrics History Para Term AB IAB SAB Ectopic Multiple Livin g Live Births 0 0 0 0 Plan of Treatment Upcoming Encounters Date Type Department Care Team (Latest Contact Info) Description 12/22/2024 10:30 AM EDT Appointment Radiology Department - [address] [phone] 12/22/2024 10:55 AM EDT Appointment Radiology Department - [address] [phone] 12/27/2024 7:30 AM EDT Hospital Encounter [facility] OR [address] [place] [phone] Yakov Echevarria DPM [address] [place] [address] 12/27/2024 7:30 AM EDT - 12/27/2024 9:30 AM EDT Surgery [facility] OR [address] [place] [phone] Yakov Echevarria DPM [address] [place] [address] [id number] RIGHT BUNIONECTOMY LAPIDUS [23559 (CPT )] Scheduled Procedures Name Priority Associated Diagnoses Date/Ti me BUNIONECTOMY LAPIDUS Hallux valgus, right Right foot pain 12/27/2024 7:30 AM EDT Health Maintenance Due Date Last Done Comments Colorectal Cancer Screening: Colonoscopy 1976 Hepatitis B Vaccines (1 of 3 - 19+ 3-dose series) 1995 Cervical Cancer Screening: Pap Smear 1997 HIV Screening 02/15/2022 Hepatitis C Screening 02/15/2022 Social Influencers of Health Screening 02/15/2022 Depression Screening 03/09/2024 COVID-19 Vaccine ( season) 2024 01/22/2022, 02/08/2021, 08/07/2020, Additional history exists Influenza Vaccine (#1) 2024 4, 01/01/2023, 01/22/2022, Additional history exists Breast Cancer Screening 11/29/2026 11/30/19, 11/26/2023, 11/26/2023, Additional history exists DTaP,Tdap,and Td Vaccines (4 - Td or Tdap) 02/15/2034 02/16/2024, 01/30/2014, 09/22/2008 RSV Immunization Adult Patients (1 - 1-dose 75+ series) 2051 HIB Vaccines Aged Out No longer eligi [...] Procedure Name Priority Date/Time Associated Diagnosis Comments MG MAMMO DIGITAL SCREENING W WILVER BILAT Routine 11/29/2024 8:14 AM EDT Encounter for screening mammogram for breast cancer from Last 3 Months Results * (ABNORMAL) MG Mammo Digital Screening w Wilver bilat (11/29/2024 8:14 AM EDT) Anatomical Region Laterality Modality Breast Bilateral Mammography 11/30/2024 5:00 PM EDT Impressions 11/30/2024 5:05 PM EDT 1. Left: No mammographic evidence of malignancy 2. Right: Indeterminate upper inner middle depth focal asymmetry 3. Heterogeneous breast parenchyma BI-RADS CATEGORY: 0 - INCOMPLETE - NEED ADDITIONAL IMAGING EVALUATION RECOMMENDATION: Additional right breast imaging recommended. Right breast CC and MLO spot compression, full-field ML, targeted ultrasound Mammo Location: [facility], [address] [place] [address], [phone], . -------- FINAL REPORT -------- Dictated By: Nico Pang Dictated Date: 11/30/2024 17:00 ET Assigned Physician: Nico Pang Reviewed and Electronically Signed By: Nico Pang Signed Date: 11/30/2024 17:05 ET Workstation ID: [id number] Transcribed By: Self Edit Transcribed Date: 11/30/2024 17:00 ET Narrative 11/30/2024 5:05 PM EDT A BILATERAL DIGITAL 3D SCREENING MAMMOGRAPHY HISTORY: Routine screening. No family history of breast cancer. COMPARISON: Multiple priors dating back to 01/31/2020 Technique: Bilateral full field digital mammography (3D) was performed using standard CC and MLO projections CAD was used to evaluate this mammogram. FINDINGS: Right: Indeterminate upper inner middle depth focal asymmetry Left: No suspicious masses, groups of microcalcification or areas of architectural distortion identified. Stable typically benign parenchymal asymmetries. BREAST DENSITY: C - The breasts are heterogeneously dense which may obscure small masses. Procedure Note Nico Pang MD - 11/30/2024 A BILATERAL DIGITAL 3D SCREENING MAMMOGRAPHY HISTORY: Routine screening. No family history of breast cancer. COMPARISON: Multiple priors dating back to 01/31/2020 Technique: Bilateral full field digital mammography (3D) was performedusing standard CC and MLO projections CAD was used to evaluate this mammogram. FINDINGS: Right: Indeterminate upper inner middle depth focal asymmetry Left: No suspicious masses, groups of microcalcification or areas ofarchitectural distortion identified. Stable typically benign parenchymalasymmetries. BREAST DENSITY: C - The breasts are heterogeneously dense which mayobscure small masses. IMPRESSION: 1. Left: No mammographic evidence of malignancy 2. Right: Indeterminate upper inner middle depth focal asymmetry 3. Heterogeneous breast parenchyma BI-RADS CATEGORY: 0 - INCOMPLETE - NEED ADDITIONAL IMAGING EVALUATION RECOMMENDATION: Additional right breast imaging recommended. Right breast CC and MLO spotcompression, full-field ML, targeted ultrasound Mammo Location: [facility], [address] [place] [address], [id number], . -------- FINAL REPORT -------- Dictated By: Nico Pnag Dictated Date: 11/30/2024 17:00 ET Assigned Physician: Nico Pang Reviewed and Electronically Signed By: Nico Pang Signed Date: 11/30/2024 17:05 ET Workstation ID: [id number] Transcribed By: Self Edit Transcribed Date: 11/30/2024 17:00 ET Nick Bonilla DO IMG BI PROCEDURES Final Result from Last 3 Months Insurance CIG Care Teams Analyst Business Analysis Relationship Specialty Start Date End Date Nick Bonilla DO [address] [place] [phone] PCP - General Internal Medicine 02/21/21
== END 2024-12-08 10:56 | disposition home or self-care (01) ==
LOC: HO.HMCFM 10:29
PROVIDERS: PCP Nurse Practitioner Family; Visit Provider Nurse Practitioner Family
DX: Z01.818 Encounter for other preprocedural examination (principal); M20.11 Hallux valgus (acquired), right foot; Z23 Encounter for immunization

== ENCOUNTER 2024-12-08 10:29 | Outpatient (REF) | payer OTHER, SELFPAY ==
[2024-12-08 14:41] LABS: Hematocrit 36.4 % (37.0-47.0); Hemoglobin 12.2 g/dl (12.0-16.0); Mean Corpuscular HGB Conc 33.5 g/dl (31.0-35.0); Mean Corpuscular Hemoglobin 31.7 pg (27.0-33.0); Mean Corpuscular Volume 94.5 fL (80.0-98.0); NRBC Abs Auto 0.000 X10*3/uL (0.0-0.012); NRBC Pct Auto 0.0 /100WBC (0.0-0.2); Platelet Count 214 X10*3/uL (160-400); Red Blood Count 3.85 X10*6/uL (4.20-5.50); White Blood Count 6.0 X10*3/uL (4.8-10.8)
[2024-12-08 15:22] LABS: Alanine Aminotransferase 25 U/L (0-31); Albumin Level 4.3 g/dL (3.5-5.0); Alkaline Phosphatase 41 U/L (39-117); Anion Gap 10 (12-20); Aspartate Amino Transferase 28 U/L (5-31); Blood Urea Nitrogen 15 mg/dL (9-16); Calcium 9.2 mg/dL (8.4-10.2); Carbon Dioxide 25 mmol/L (22-29); Chloride 109 mmol/L (96-108); Estimated Glomerular Filt Rate > 60; Potassium 4.0 mmol/L (3.3-5.1); Sodium 140 mmol/L (135-145); Total Protein 7.0 g/dL (6.5-8.0)
== END 2024-12-08 10:30 | disposition home or self-care (01) ==
LOC: HO.WFDLDS 10:29
PROVIDERS: PCP Nurse Practitioner Family; Visit Provider Nurse Practitioner Family
DX: Z23 Encounter for immunization (principal); Z01.818 Encounter for other preprocedural examination; M20.11 Hallux valgus (acquired), right foot; Z79.899 Other long term (current) drug therapy
CPT/HCPCS: 36415; 80053; 85027; 90471; 90656; 96127

== ENCOUNTER 2025-02-20 08:04 | Outpatient (REF) | payer OTHER, SELFPAY ==
[2025-02-20 11:46] LABS: Alanine Aminotransferase 26 U/L (0-31); Albumin Level 4.5 g/dL (3.5-5.0); Alkaline Phosphatase 46 U/L (39-117); Anion Gap 10 (12-20); Aspartate Amino Transferase 30 U/L (5-31); Blood Urea Nitrogen 14 mg/dL (9-16); Calcium 9.4 mg/dL (8.4-10.2); Carbon Dioxide 25 mmol/L (22-29); Chloride 109 mmol/L (96-108); Cholesterol 185 mg/dL (<200); Estimated Glomerular Filt Rate > 60; HDL Cholesterol 89 mg/dL (>40); Potassium 4.2 mmol/L (3.3-5.1); Sodium 140 mmol/L (135-145); Total Protein 7.0 g/dL (6.5-8.0); Triglycerides 62 mg/dL (<150)
== END 2025-02-20 08:05 | disposition home or self-care (01) ==
LOC: HO.WFDLDS 08:04
PROVIDERS: Visit Provider Nurse Practitioner Family
DX: Z00.00 Encounter for general adult medical examination without abnormal findings (principal); D64.9 Anemia, unspecified; Z15.89 Genetic susceptibility to other disease; Z80.0 Family history of malignant neoplasm of digestive organs; Z85.41 Personal history of malignant neoplasm of cervix uteri; Z92.89 Personal history of other medical treatment; Z98.890 Other specified postprocedural states; Z84.81 Family history of carrier of genetic disease; Z79.899 Other long term (current) drug therapy
CPT/HCPCS: 36415; 80053; 80061; 83036; 96127

== ENCOUNTER 2025-02-20 08:04 | Outpatient (AMB) | payer OTHER, SELFPAY ==
--- NOTE | 2025-02-20 08:06 | A.OFFPC_ITS ---
Vital Signs 02/20/25 08:10 Height 5 ft 4 in Weight 132 lb 2 oz BMI 22.7 BP 99/66 Blood Pressure Location Lt brachial Position Sitting Respiration 12 Pulse 78 Pulse Source Pulse Oximeter Temp 97.5 F Temp Source Oral Pulse Oximetry (%) 98 Oxygen Delivery Method Room Air Intake Visit Reasons: 1 year cpe Intake Note: CPE. Paralegal Assistant Required: No Allergies No Known Allergies Allergy (Verified 02/20/25 08:06) Medication List - Last Reconciled 02/20/25 by ANN-MARIE Rebollar-BC multivitamin 1 tab PO DAILY Tobacco use date assessed: 02/20/25 Dental Screening Dental Screen Date: 02/20/25 Did you have a dental visit in the last 12 months?: Yes Did you have a dental problem in the last 6 months where you did not have access to dental care?: No Was dental information given to patient?: Patient has dentist HPI HPI Comments History of Present Illness Details 49 y/o F with cervical cancer s/p cone b x age 21, mild anemia, perimenopausal, Family hx of colon ca, family hx of high risk genetic mutation, former smoker, + MUYTH gene mutation Family hx: Mom colon ca age 62, MGF renal cell ca, sister + for MUYTH gene mutation associated with polyposis syndrome (map) Surgical hx: cone bx , Hallux valgus (acquired), right foot 2024, Social: No children, , 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 Heterozygous MUTYH gene mutation: - The patient underwent genetic testing and was found to be heterozygous for a MUTYH gene mutation, similar to her sister. - This result was communicated to her ga stroenterology team, who initially did not recognize her as high-risk but subsequently scheduled a follow-up colonoscopy after she provided them with the genetic report. - She has a family history of colon canc er and her sister has MUTYH-associated polyposis. Personal history of colonic polyps: - A prior colonoscopy revealed 8 polyps. - She has a repeat colonoscopy scheduled for April 21. Screening for malignant neoplasm of breast: - The patient has a history of dense dillon asts and had an abnormal mammogram in December, which required additional imaging. - The additional imaging was normal. - She is scheduled for a breast MRI. - Her genetic test showed a breast cance r score of 7%, which is considered average risk. - Her sister had a breast cancer gene mu tation which the patient does not have. Screening for malignant neoplasm of cervix: - The patient has a history of cervical cancer and is due for a Pap smear. - In 2024, she underwent multiple programming intern al ultrasounds and three hysteroscopies for a finding near her ovary, which ultimately were benign. Social History - Per patient report, is a former smoker - Employment: Works in real estate - Functional Status: Reports being very active but mobility was limited for 7 weeks post-surgery, requiring assistance with driving. - Takes a multivitamin Health Maintenance - Mammogram was performed in December fol lowed by additional imaging which was normal. - A repeat colonoscopy is scheduled for April 21. - Current on tetanus (2024) and influenz a immunizations. - Practices regular skin self-checks for moles with her . - Performs self breast exams. Review of Systems - Constitutional: Denies issues. - Eyes: Reports worsening vision in the right eye; wears contacts. - Skin: Denies issues, problems, or conc erns. - Gastrointestinal: Reports normal bowel movements. Denies abdominal pain. - Genitourinary: Reports normal urinatio n. - Musculoskeletal: Reports post-surgical swelling in one foot and states the operated foot hurts more than the other. Physical Exam General: Well developed, well nourished, in no acute distress. Appears stated age. Head: Normocephalic, atraumatic. Eyes: Pupils are equal, round and reactive to light and accommodation. Conjunctivae are clear. Scleras nonicteric bilat. Vision grossly normal Ears: TMs clear AU, EACS WNL Nose: Patent, without discharge. Neck: No carotid bruit bilat. Supple, no adenopathy or thyromegaly. Breast: Edu on SBE. Lungs: Clear to auscultation bilaterally. No rales, rhonchi or wheeze noted. Good air flow in all [place]en. Heart: Regular rate and rhythm. No murmurs, click, rubs or gallops are noted. Abdomen: Bowel sounds present in all quadrants. The abdomen is soft, nontender, with no masses or organomegaly noted. No hernias are noted. : Deferred. Reviewed recommendations for routine SENIOR BI DEVELOPER. Patient reports previous internal ultrasounds and hysteroscopies with normal results. Pulses: Peripheral pulses are equal and palpable bilaterally. Extremities: No clubbing, cyanosis nor edema is noted. Patient reports checking for moles and ticks due to pets. Neurologic: Gait and station normal. Cranial Nerves 2-12 intact. Motor strength grossly symmetrical and intact. No sensory loss. Balance normal. Skin: No rashes, ulcers, or lesions noted. Turgor is good. Skin color is good. Hair and nails are without abnormalities. Patient reports regular skin checks with spouse. Psych: Normal eye contact, affect and mood appropriate, and normal interactions. Patient is alert and appropriate to context. Results - Genetic Testing: Positive for heterozy gous MUTYH gene mutation. - Breast Cancer Score: 7% (average risk) . - Mammogram: Abnormal, requiring additio nal imaging whcih was normal - Additional Breast Imaging: Normal. - Hysteroscopy: Three performed, all fin dings were benign. - Labs today pending Medical Decision Making The patient is a 49-year-old female here for a complete physical exam, health maintenance, and pre-operative clearance for her second foot surgery scheduled on April 25. Her medical history is notable for a heterozygous MUTYH gene mutation, which places her at high risk for colon cancer, warranting increased surveillance. She has a repeat colonoscopy scheduled for April 21, and it has been determined that it is safe to proceed with both the colonoscopy and her foot surgery within the same week, as the colonoscopy uses conscious sedation, not general anesthesia. Her breast health is being monitored due to dense breast tissue and a previously abnormal mammogram, which requires a breast MRI, though follow-up imaging was normal and genetic risk is average. Today's plan includes ordering necessary lab work (cholesterol, CMP, diabetes screen) for an external form and ordering a CBC to be drawn closer to her surgery date as part of her pre-operative assessment. She will schedule her next annual exam and a separate pre-op visit for late March or early April. The patient remains up to date with other health maintenance, including immunizations and self-exams, and her physical exam today is unremarkable. Plan 1. Encounter For General Adult Medical E xamination - Labs for cholesterol, kidney and liver function, and a diabetes screen were ordered today to complete a required form. - A future lab order for a CBC will be p laced, to be drawn within 30 days of her upcoming surgery. - The patient will schedule her next [facility] physical exam. 2. Pre-Procedural Examination - The patient has a second foot surgery scheduled for April 25. - She will book a pre-op visit for march or early April. - Pre-operative labs, specifically a CBC , will be ordered for a future date closer to the surgery. 3. High-Risk Screening Colonoscopy - Due to her heterozygous MUTYH gene mut ation and history of polyps, she will proceed with her scheduled colonoscopy on April 21. - It is safe for her to undergo consciou s sedation for the colonoscopy four days before her surgery under general anesthesia. 4. Screening For Malignant Neoplasm Of B reast - Given her history of dense breasts, sh e requires a breast MRI. - Continue with self-breast exams despit e the density of her breast tissue. 5. Encounter For Screening For Malignant Neoplasm Of Cervix -active w/ director of user experience Patient Instructions - Go to the lab today to get your blood work done for the form. - The completed form will be left at the medical front desk specialist for you to pickle processor, likely by tomorrow. - Stop at the medical front desk specialist to book two [facility] appointments: your next annual physical and a pre-op visit for your upcoming surgery. - Schedule your pre-op visit for or early April. - You do not need to reschedule your col onoscopy; it is safe to have it on April 21 before your surgery on April 25. - Continue doing your monthly self-breas t exams. - Continue having your check you r back for any new or changing moles. - You can view your lab results on the [employer] portal. Consent Patient was informed and verbally consented to the use of an ambient scribe for clinic note documentation during this visit. [facility] Medical History (Updated 02/20/25 @ 08:30 by Wilda Jones [facility]) Anemia Cervical cancer Tendonitis Torn rotator cuff Surgical History (Updated 02/20/25 @ 08:13 by ANN-MARIE RebollarEUGENE) H/O cone biopsy of cervix S/P foot surgery, right (~2024) Family History Father Mental health disorder Hypertension High cholesterol Asthma Mother Cancer Thyroid disorder Maternal Grandfather Cancer Sister Hypertension Asthma Thyroid disorder Brother Asthma Social History Household Members: Spouse Both parents involved: No Caregiver staying overnight: No Housing: House Are you a primary lawn care worker to a significant other at home: No Do you presently have visiting nurse or other home services: No 75 years or older and lives alone: No Alcohol intake: current Alcohol intake frequency: a few times a week Patient Tobacco Use Status: Former Tobacco user e-Cigarette/Vaping Use: Never Used Second Hand Smoke Exposure: No service: No Current occupational status: employed Current occupation: real estte Cognitive needs: No Hearing needs: No Vision needs: Yes (wear contacts) Questionnaire PHQ-9 Over the last 2 weeks, how often have you been bothered by any of the following problems? 1. Little interest or pleasure in doing things: not at all 2. Feeling down, depressed, or hopeless: not at all 3. Trouble falling or staying asleep, or sleeping too much: not at all 4. Feeling tired or having little energy: not at all 5. Poor appetite or overeating: not at all 6. Feeling bad about yourself - or that you are a failure or have let yourself or your family down: not at all 7. Trouble concentrating on things, such as reading the newspaper or watching television: not at all 8. Moving or speaking so slowly that other people could have noticed. Or the opposite - being so fidgety or restless that you have been moving around a lot more than usual: not at all 9. Thoughts that you would be better off or of hurting yourself in some way: not at all Total score: 0 Depression Screening Interpretation: Negative Depression Screening Done: Yes 23185 - PHQ-9 Billing: Yes Source: Developed by Drs. Dandre Galarza, Korina Boyd, Tom Graham and colleagues, with an educational david from [employer]. Thrive Questionnaire Date Thrive assessed: 02/20/25 I am a: Patient What is your living situation today?: I have a steady place to live Within the past 12 months, did the food you bought not last and you didn't have the money to get more?: Never true Within the past 12 months, did you worry whether your food would run out before you got money to buy more?: Never true Do you have trouble paying for medicines?: No Do you have trouble getting transportation to medical appointments?: No Do you have trouble paying your heating and electricity bill?: No Do you have trouble taking care of your child, family member or friend?: No Do you have trouble with day-to-day activities such as bathing, preparing meals, shopping, managing finances, etc.?: No Are you currently unemployed and looking for a job?: No Are you interested in more education?: No Please select the resources that you would like help with: None Currently or been in a relationship where the following occur: No concerns reported THRIVE Score: 0 AUDIT C Alcohol Use Questionnaire (AUDIT-C) 1. How often do you have a drink containing alcohol?: 2-4 times a month 2. How many drinks containing alcohol do you have on a typical day when you are drinking?: 1 or 2 3. How often do you have six or more drinks on one occasion?: Never Total Score: 2 Score Reviewed/Action Taken: Yes BONNY-7 AMB Questionnaire BONNY-7 Date BONNY - 7 assessed: 02/20/25 Feeling nervous, anxious, or on edge: 1 = Several days Not being able to stop or control worryin = Several days Worrying too much about different things: 1 = Several days Trouble relaxin = Several days Being so restless that it is hard to sit still: 1 = Several days Becoming easily annoyed or irritable: 0 = Not at all Feeling afraid as if something awful might happen: 0 = Not at all Total BONNY-7 score (0-4 normal; 5-9 mild; 10-14 moderate; 15-21 severe): 5 Source: Developed by Korina Meek, Tom Graham and colleagues, with an educational david from [employer]. BONNY-7 Assessment Billing BONNY-7 Assessment Tool: BONNY-7 Assessment 25721 Physical exam (Primary Care) Vital Signs: Last Vital Signs Temp 97.5 F 02/20/25 08:10 Pulse 78 02/20/25 08:10 Resp 12 02/20/25 08:10 BP 99/66 02/20/25 08:10 Pulse Ox 98 02/20/25 08:10 Oxygen Delivery Method Room Air 02/20/25 08:10 BMI result Body Mass Index 22.7 Tobacco/Smoking Status: Tobacco use Status Tobacco use date assessed 02/20/25 02/20/25 08:09 Patient Tobacco Use Status Former Tobacco user 02/20/25 08:09 e-Cigarette/Vaping Use Never Used 02/20/25 08:09 PHQ-9: PHQ-9 Score PHQ-9: Total score 0 02/20/25 08:13 Depression Screening Interpretation: Negative Thrive Assessment: Date of Thrive Assessment Date Thrive assessed 02/20/25 02/20/25 08:09 Currently or been in a relationship where the following occur: No concerns reported Coding Level of Care Code Est Pt Prev Care 40-64y(28400) Add On Preventative Visit Only Diagnoses Adult general medical exam Z00.00 Family history of genetic disease carrier Z84.81 History of colonoscopy Z98.890 Mild anemia D64.9 Family history of colon cancer Z80.0 Personal history of malignant neoplasm of cervix uteri Z85.41 Laboratory exam ordered as part of routine general medical examination Z00.00 History of mammogram Z92.89 History of Papanicolaou smear of cervix Z92.89 Gene mutation Z15.89 Additional Codes BONNY-7 Assessment Billing - BONNY-7 Assessment Tool: BONNY-7 Assessment 26258 ([id number]) PHQ-9 - 08022 - PHQ-9 Billing: Yes ([id number]) Assessment & Plan Assessment & Plan (1) Adult general medical exam: Onset Date: ~02/20/25 Code(s): Z00.00 - Encounter for general adult medical examination without abnormal findings Category: Medical (2) Family history of genetic disease carrier: Comment: sister + for MUYTH gene mutation associated with polyposis syndrome (map) Code(s): Z84.81 - Family history of carrier of genetic disease Category: Medical (3) History of colonoscopy: Onset Date: ~10/2024 Code(s): Z98.890 - Other specified postprocedural states Category: Surgical (4) Mild anemia: Code(s): D64.9 - Anemia, unspecified Category: Medical (5) Family history of colon cancer: Comment: mom Code(s): Z80.0 - Family history of malignant neoplasm of digestive organs Category: Medical (6) Personal history of malignant neoplasm of cervix uteri: Code(s): Z85.41 - Personal history of malignant neoplasm of cervix uteri Category: Medical (7) Laboratory exam ordered as part of routine general medical examination: Code(s): Z00.00 - Encounter for general adult medical examination without abnormal findings Category: Medical (8) History of mammogram: Onset Date: ~12/2024 Code(s): Z92.89 - Personal history of other medical treatment Category: Medical (9) History of Papanicolaou smear of cervix: Onset Date: ~2023 Code(s): Z92.89 - Personal history of other medical treatment Category: Medical (10) Gene mutation: Onset Date: ~2024 Comment: + for MUYTH gene mutation associated with polyposis syndrome (map) Code(s): Z15.89 - Genetic susceptibility to other disease Category: Medical Plan . Orders: Orders Comprehensive Met. Panel Today Z00.00 - Encounter for general adult medical examination without abnormal findings Hemoglobin A1c Today Z00.00 - Encounter for general adult medical examination without abnormal findings Lipid Panel Today Z00.00 - Encounter for general adult medical examination without abnormal findings Patient Instructions: Health screenings for women You should visit your health care provider from time to time, even if you are healthy. The purpose of these visits is to: Screen for medical issues Assess your risk for future medical problems Encourage a healthy lifestyle Update vaccinations and other preventive care services Help you get to know your provider in case of an illness Information Even if you feel fine, you should still see your provider for regular checkups. These visits can help you avoid problems in the future. For example, the only way to find out if you have high blood pressure is to have it checked regularly. High blood sugar and high cholesterol levels also may not have any symptoms in the early stages. A simple blood test can check for these conditions. There are specific times when you should see your provider or receive specific health screenings. The [place] Preventive Services Task Force publishes a list of recommended screenings. Below are screening guidelines for women ages 18 to 39. BLOOD PRESSURE SCREENING Your blood pressure should be checked at least once every 3 to 5 years if: Your blood pressure is in the normal range (top number less than 120 mm Hg and bottom number less than 80 mm Hg) You don't have risk factors for high blood pressure Ask your provider if you need your blood pressure checked more often if: The top number is 120 to 129 mm Hg or the bottom number is 70 to 79 mm Hg You have diabetes, heart disease, kidney problems, are overweight, or have certain other health conditions You have a first-degree relative with high blood pressure You are Black You had high blood pressure during a If the top number is 130 mm Hg or greater or the bottom number is 80 mm Hg or greater, this is considered stage 1 hypertension. Schedule an appointment with your provider to learn how you can reduce your blood pressure. Watch for blood pressure screenings in your area. Ask your provider if you can stop in to have your blood pressure checked. BREAST CANCER SCREENING Experts do not agree about the benefits of breast self-exams in finding breast cancer or saving lives. Talk to your provider about what is best for you. A screening mammogram is not recommended for most women under age 40. Your provider may discuss and recommend mammograms, MRI scans, or ultrasounds if you have an increased risk for breast cancer, such as: A mother or sister who had breast cancer at a young age (most often starting screening earlier than the age the close relative was diagnosed) You carry a high-risk genetic marker CERVICAL CANCER SCREENING Cervical cancer screening should start at age 21 years unless your provider advises otherwise. After the first test: Women ages 21 through 29 should have a Pap test every 3 years. Exoprts do not agree on whether HPV testing is recommended for this age group. Women ages 30 through 65 should be screened with either a Pap test every 3 years or the HPV test every 5 years or both tests every 5 years (called cotesting ). Women who have been treated for precancer (cervical dysplasia) should continue to have Pap tests for 20 years after treatment or until age 65, whichever is longer. If you have had your uterus and cervix removed (total hysterectomy), and you have not been diagnosed with cervical cancer or precancer (high grade cervical neoplasia), you do not need cervical cancer screening. CHOLESTEROL SCREENING Cholesterol screening should begin at: Age 45 for women with no known risk factors for coronary heart disease Age 20 for women with known risk factors for coronary heart disease Repeat cholesterol screening should take place: Every 5 years for women with normal cholesterol levels More often if changes occur in lifestyle (including weight gain and diet) More often if you have diabetes, heart disease, kidney problems, or certain other conditions DIABETES SCREENING You should be screened for diabetes starting at age 35 and then repeated every 3 years if you have no risk factors for diabetes. Screening may need to start earlier and be repeated more often if you have other risk factors for diabetes, such as: You have a first degree relative with diabetes. You are overweight or have obesity. You have high blood pressure, prediabetes, or a history of heart disease. Screening for diabetes should be done if you are planning to become and you are overweight and have other risk factors such as high blood pressure. DENTAL EXAM Go to the dentist once or twice every year for an exam and cleaning. Your dentist will evaluate if you need more frequent visits. EYE EXAM Have an eye exam every 5 to 10 years before age 40. If you have vision problems, have an eye exam every 2 years or more often if recommended by your provider. You should have an eye exam that includes an examination of your retina (back of your eye) at least every year if you have diabetes. IMMUNIZATIONS Commonly needed vaccines include: Flu shot: get one every year. COVID-19 vaccine: ask your provider what is best for you. Tetanus-diphtheria and acellular pertussis (Tdap) vaccine: have one at or after age 19 as one of your tetanus-diphtheria vaccines if you did not receive it as an adolescent. Tetanus-diphtheria: have a booster (or Tdap) every 10 years. Varicella vaccine: receive 2 doses if you never had chickenpox or the varicella vaccine. Hepatitis B vaccine: receive 2, 3, or 4 doses, depending on your exact circumstances. Measles, mumps, and rubella (MMR) vaccine: receive 1 to 2 doses if you are not already immune to MMR. Your provider can tell you if you are immune. Ask your provider about the human papillomavirus (HPV) vaccine if: You have not received the HPV vaccine in the past You have not completed the full vaccine series (you should catch up on this shot) Ask your provider if you should receive other immunizations if you have certain health problems that increase your risk for some diseases such as pneumonia. INFECTIOUS DISEASE SCREENING Women who are sexually active should be screened for chlamydia and gonorrhea up until age 25. Women 25 years and older should be screened for chlamydia and gonorrhea if at high risk. Screening for hepatitis C: All adults ages 18 to 79 should get a one-time test for hepatitis C. people should be screened at every . Screening for human immunodeficiency virus (HIV): All people ages 15 to 65 should get a one-time test for HIV. Depending on your lifestyle and medical history, you may also need to be screened for infections such as syphilis and HIV, as well as other infections. PHYSICAL EXAM All adults should visit their provider from time to time, even if they are healthy. The purpose of these visits is to: Screen for disease Assess your risk of future medical problems Encourage a healthy lifestyle Update your vaccinations and other preventive care services Maintain a relationship with a provider in case of an illness Your height, weight, and BMI should be checked at every exam. During your exam, your provider may ask you about: Depression and anxiety Diet and exercise Alcohol and tobacco use Safety issues, such as using seat belts, smoke detectors, and intimate partner violence Your medicines and risk for interactions SKIN SELF-EXAM Your provider may check your skin for signs of skin cancer, especially if you're at high risk, such as if you: Have had skin cancer before Have close relatives with skin cancer Have a weakened immune system OTHER SCREENING Talk with your provider about colon cancer screening if you have a strong family history of colon cancer or polyps, or if you have had inflammatory bowel disease or polyps yourself. Routine bone density screening of women under 40 is not recommended.
[2025-02-20 08:10] VITALS: BP 99/66; PULSE 78; RESP 12; TEMP 36.4; O2SAT 98; BMI 22.7
--- OUTSIDE RECORDS SUMMARY | 2025-02-20 08:38 | XMS_ITS | Clinical Summary ---
Author Organization [facility] [address] [place] [address] [place] [phone] Phone Care Team Providers Care Independent Freight Agent Name Role Phone Wilda Jones Primary Care Provider Allergies No known active allergies Medications multivitamin with iron Take 1 tablet by mouth 1 (one) time each day. Active psyllium (METAMUCIL) 3.4 gram packet Take 1 packet by mouth 1 (one) time each day. Active ascorbic acid (VITAMIN C) 500 mg CR capsule Take 1 capsule (500 mg total) by mouth 1 (one) time each day. Active oxyCODONE (ROXICODONE) 5 mg immediate release tablet Take 1 tablet (5 mg total) by mouth every 6 (six) hours if needed. 12/26/2024 Active aspirin 81 mg EC tablet Take 1 tablet (81 mg total) by mouth 2 (two) times a day. 60 each 3 12/27/2024 Active Encounters Date Type Department Care Team Description 01/12/2025 1:32 PM EST - 01/12/2025 11:59 PM EST Hospital Encounter Radiology Department - [address] [phone] Other abnormal and inconclusive findings on diagnostic imaging of breast Discharge Disposition: Home or Self Care 12/27/2024 7:30 AM EDT - 12/27/2024 9:30 AM EDT Surgery [facility] OR [address] [place] [address] Yakov Echevarria DPM RIGHT BUNIONECTOMY LAPIDUS [64349 (CPT )] 12/27/2024 7:27 AM EDT Anesthesia Event [facility] OR [address] [place] [phone] Leoncio Toscano, 12/27/2024 6:35 AM EDT - 12/27/2024 10:50 AM EDT Hospital Encounter [facility] OR [address] [place] [phone] Yakov Echevarria DPM Bunion of right foot Discharge Disposition: Home or Self Care 12/22/2024 10:32 AM EDT - 12/22/2024 11:59 PM EDT Hospital Encounter Radiology Department - [address] [phone] Abnormal mammogram Discharge Disposition: Home or Self Care 12/22/2024 10:30 AM EDT - 12/22/2024 11:59 PM EDT Hospital Encounter Radiology Department - [address] [phone] Abnormal mammogram Discharge Disposition: Home or Self Care 11/29/2024 8:00 AM EDT - 11/29/2024 11:59 PM EDT Hospital Encounter Radiology Department - [address] [phone] Encounter for screening mammogram for breast cancer Discharge Disposition: Home or Self Care from Last 3 Months Surgical History Surgery Date Site/Laterality Comments CERVICAL BIOPSY W/ LOOP ELECTRODE EXCISION PROCEDURE: HISTORICAL CONE BIOPSY Medical History Medical History Date Comments Anemia Family History Medical History Relation Name Comments [...] Years Used Date Smoking Tobacco: Former Cigarettes 0 Q uit: 12/15/2014 Smokeless Tobacco: Never Alcohol Use Standard Drinks/Week Comments Yes 4.2 (1 standard drink = 0.6 oz p ure alcohol) Interpersonal Safety Answer Date Record ed Physical Abuse Unrecognized value 12/27/2024 Verbal Abuse Unrecognized value 12/27/2024 Comments No Sex and Gender Information Value Date Recorded Sex Assigned at Not on file Legal Sex Female 9:24 PM EST Gender Identity Not on file Sexual Orientation Not on file Obstetrics History Para Term AB IAB SAB Ectopic Multiple Livin g Live Births 0 0 0 0 Last Filed Vital Signs Vital Sign Reading Time Taken Comments Blood Pressure 132/74 12/27/2024 10:19 AM EDT Pulse 75 12/27/2024 10:19 AM EDT Temperature 36.4 C (97.5 F) 12/27/2024 10:29 AM EDT Respiratory Rate 13 12/27/2024 10:29 AM EDT Oxygen Saturation 97% 12/27/2024 10:29 AM EDT Inhaled Oxygen Concentration - - Weight 58.5 kg (129 lb) 01/12/2025 1:39 PM EST Height 162.6 cm (5' 4 ) 12/27/2024 6:57 AM EDT Body Mass Index 22.14 12/27/2024 6:57 AM EDT Plan of Treatment Health Maintenance Due Date Last Done Comments Colorectal Cancer Screening: Colonoscopy 1976 Hepatitis B Vaccines (1 of 3 - 19+ 3-dose series) 1995 Cervical Cancer Screening: Pap Smear 1997 HIV Screening 02/15/2022 Hepatitis C Screening 02/15/2022 Social Influencers of Health Screening 02/15/2022 Depression Screening 03/09/2024 COVID-19 Vaccine ( season) 2024 01/22/2022, 02/08/2021, 08/07/2020, Additional history exists Breast Cancer Screening 12/22/2026 12/23/19 25, 11/29/2024, 11/26/2023, Additional history exists DTaP,Tdap,and Td Vaccines (4 - Td or Tdap) 02/15/2034 02/16/2024, 01/30/2014, 09/22/2008 RSV Immunization Adult Patients (1 - 1-dose 75+ series) 2051 Influenza Vaccine Completed 12/08/2024, , 01/01/2023, Additional history exists HIB Vaccines Aged Out [...] on patient's age to complete this topic Medical Devices Implanted Type Area Chemist Internship Device Identifier Shelf Expiration Date Model / Serial / Lot Treace Speedplate Micro Quad 14mm Rapid Compression Implant Implanted:Qty: 1 on 12/27/2024 by Yakvo Echevarria DPM at [facility] Internal and External Fixation Right: First Toe [employer] 07/26/2029 [id number] / . / [id number] Plate Rapid Compress Speedplate [id number] - S. - [id number] Implanted:Qty: 1 on 12/27/2024 by Yakov Echevarria DPM at [facility] Internal and External Fixation Right: First Toe [employer] 07/08/2029 [id number] / . / [id number] Procedures Procedure Name Priority Date/Time Associated Diagnosis Comments MR BREAST WO AND W CONTRAST BILAT Routine 01/12/2025 2:37 PM EST Other abnormal and inconclusive findings on diagnostic imaging of breast XR FOOT 3+ VIEWS RIGHT Routine 12/27/2024 10:09 AM EDT OXYGEN THERAPY, ADULT Routine 12/27/2024 9:30 AM EDT TX CORRECTION HALLUX VALGUS W SESAMOIDECTOM 1ST METAT/CUNEIFORM JT ARTHRO 12/27/2024 7:27 AM EDT Hallux valgus, right Right foot pain Case Notes LAPIPLASTY SYSTEM US BREAST LIMITED RIGHT Routine 12/22/2024 10:50 AM EDT Abnormal mammogram MG MAMMO DIGITAL DIAGNOSTIC W WILVER RIGHT Routine 12/22/2024 10:42 AM EDT Abnormal mammogram MG MAMMO DIGITAL SCREENING W WILVER BILAT Routine 11/29/2024 8:14 AM EDT Encounter for screening mammogram for breast cancer from Last 3 Months Results * MR Breast wo and w Contrast bilat (01/12/2025 2:37 PM EST) Anatomical Region Laterality Modality Breast Bilateral Magnetic Resonan ce 01/13/2025 5:02 PM EST Impressions 01/13/2025 5:17 PM EST Left Breast: No enhancing mass, architectural distortion, or suspicious area of enhancement. Right Breast: No enhancing mass, architectural distortion, or suspicious area of enhancement. BI-RADS CATEGORY: 2 - BENIGN RECOMMENDATION: Return to annual mammography. -------- FINAL REPORT -------- Dictated By: Nico Pang Dictated Date: 01/13/2025 17:02 ET Assigned Physician: Nico Pang Reviewed and Electronically Signed By: Nico Pang Signed Date: 01/13/2025 17:17 ET Workstation ID: [id number] Transcribed By: Self Edit Transcribed Date: 01/13/2025 17:02 ET Narrative 01/13/2025 5:17 PM EST EXAM: Bilateral breast MRI with and without intravenous contrast HISTORY: Evaluation of upper inner right breast focal asymmetry seen on prior mammogram TECHNIQUE: Sagittal T1 images and axial STIR images were obtained through each breast. Axial T1-weighted sequences were performed before and after administration of dotarem in multiple phases and subtracted images were obtained. 20 cc of intravenous dotarem were administered without incident. Kinetics analysis was performed using CAD stream software. Multiplanar reformatted images were created and analyzed on a workstation. COMPARISON: Mammogram from 12/22/2024 FINDINGS: There is minimal background parenchymal enhancement in both breasts. The breasts are heterogeneously dense, which may obscure small masses LEFT BREAST: There are a few scattered nonspecific less than 5 mm foci of progressive enhancement within the breast. No enhancing mass, architectural distortion, or suspicious area of enhancement is identified. The nipple and skin appear normal. There is no lymphadenopathy. RIGHT BREAST: There are a few scattered nonspecific less than 5 mm foci of progressive enhancement within the breast. No enhancing mass, architectural distortion, or suspicious area of enhancement is identified. The nipple and skin appear normal. There is no lymphadenopathy. Procedure Note Nico Pang MD - 01/13/2025 EXAM: Bilateral breast MRI with and without intravenous contrast HISTORY: Evaluation of upper inner right breast focal asymmetry seen onprior mammogram TECHNIQUE: Sagittal T1 images and axial STIR images were obtained througheach breast. Axial T1-weighted sequences were performed before and afteradministration of dotarem in multiple phases and subtracted images wereobtained. 20 cc of intravenous dotarem were administered without incident.Kinetics analysis was performed using CAD stream software. Multiplanarreformatted images were created and analyzed on a workstation. COMPARISON: Mammogram from 12/22/2024 FINDINGS: There is minimal background parenchymal enhancement in both breasts. The breasts are heterogeneously dense, which may obscure small masses LEFT BREAST: There are a few scattered nonspecific less than 5 mm foci of progressiveenhancement within the breast. No enhancing mass, architectural distortion, or suspicious area ofenhancement is identified. The nipple and skin appear normal. There is no lymphadenopathy. RIGHT BREAST: There are a few scattered nonspecific less than 5 mm foci of progressiveenhancement within the breast. No enhancing mass, architectural distortion, or suspicious area ofenhancement is identified. The nipple and skin appear normal. There is no lymphadenopathy. IMPRESSION: Left Breast: No enhancing mass, architectural distortion, or suspicious area ofenhancement. Right Breast: No enhancing mass, architectural distortion, or suspicious area ofenhancement. BI-RADS CATEGORY: 2 - BENIGN RECOMMENDATION: Return to annual mammography. -------- FINAL REPORT -------- Dictated By: Nico Pang Dictated Date: 01/13/2025 17:02 ET Assigned Physician: Nico Pang Reviewed and Electronically Signed By: Nico Pang Signed Date: 01/13/2025 17:17 ET Workstation ID: [id number] Transcribed By: Self Edit Transcribed Date: 01/13/2025 17:02 ET Wilda Jones AUTOMATIC CENTRIFUGAL STATION OPERATOR IMG MRI PROCEDURES Final Re sult * XR Foot 3+ Views Right (12/27/2024 10:09 AM EDT) Anatomical Region Laterality Modality Lower Extremities, Foot Right Radiogra phic Imaging 01/04/2025 10:1 1 AM EDT Impressions 01/04/2025 10:14 AM EDT Status post a bony bunionectomy of the medial first metatarsal head. 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 -------- FINAL REPORT -------- Dictated By: Sergei Cross Dictated Date: 01/04/2025 10:11 ET Assigned Physician: Sergei Cross Reviewed and Electronically Signed By: Sergei Cross Signed Date: 01/04/2025 10:14 ET Workstation ID: [id number] Transcribed By: Self Edit Transcribed Date: 01/04/2025 10:11 ET Narrative 01/04/2025 10:14 AM EDT Study: Radiographs of the right foot HISTORY: Postop TECHNIQUE: 3 radiographs of the right foot FINDINGS: There is a fiberglass splint overlying the right foot. There is mild widening of the first metatarsal-phalangeal joint. Otherwise, Anatomic alignment is present. A bony bunionectomy is present at the medial aspect of the first metatarsal head. 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 Procedure Note Sergei Cross MD - 01/04/2025 Study: Radiographs of the right foot HISTORY: Postop TECHNIQUE: 3 radiographs of the right foot FINDINGS: There is a fiberglass splint overlying the right foot. There ismild widening of the first metatarsal-phalangeal joint. Otherwise,Anatomic alignment is present. A bony bunionectomy is present at themedial aspect of the first metatarsal head. Orthopedic hardware ankylosisof the first metatarsal-tarsal joint is seen. IMPRESSION: Status post a bony bunionectomy of the medial first metatarsal head.Status post an orthopedic hardware ankylosis of the firstmetatarsal-tarsal joint. -------- FINAL REPORT -------- Dictated By: Sergei Cross Dictated Date: 01/04/2025 10:11 ET Assigned Physician: Sergei Cross Reviewed and Electronically Signed By: Sergei Cross Signed Date: 01/04/2025 10:14 ET Workstation ID: [id number] Transcribed By: Self Edit Transcribed Date: 01/04/2025 10:11 ET us Yakov Echevarria DPM IMG XR PROCEDURES Final Resu lt * (ABNORMAL) US Breast Limited Right (12/22/2024 10:50 AM EDT) Anatomical Region Laterality Modality Breast Right Ultrasound Impressions 12/22/2024 11:04 AM EDT Persistent asymmetry in the upper medial right breast on additional views without ultrasonographic correlation in the background of heterogeneously dense fibroglandular tissues. MRI examination is recommended for further assessment. Findings and recommendations were conveyed to the patient. Ordering provider would refer the patient for the breast MRI. BI-RADS CATEGORY: 0 - INCOMPLETE: NEED ADDITIONAL IMAGING EVALUATION RECOMMENDATION: Breast MRI is recommended. Breast MRI is recommended. Mammo Location: [facility], [address] [place] [address], [id number], . -------- FINAL REPORT -------- Dictated By: Alondra Raman Dictated Date: 12/22/2024 10:59 ET Assigned Physician: Alondra Raman Reviewed and Electronically Signed By: Alondra Raman Signed Date: 12/22/2024 11:04 ET Workstation ID: [id number] Transcribed By: Self Edit Transcribed Date: 12/22/2024 10:59 ET Narrative 12/22/2024 11:04 AM EDT Diagnostic mammogram of the right breast. Targeted right breast ultrasound. CLINICAL: 49 years old, Female, focal asymmetry in the upper inner right breast on screening exam. COMPARISON: Multiple prior screening mammograms, latest from 11/29/2024. FINDINGS: MAMMOGRAPHY TECHNIQUE: Spot compression views of the right breast in CC and MLO projection as well as full field striped lateral view were obtained digitally with 2-D C views and 3-D mammogram (digital breast tomosynthesis). Focal asymmetry in the upper medial breast persists on the additional views. There is no evidence of new suspicious mass or architectural distortion. No worrisome calcifications are evident. BREAST DENSITY: C - The breasts are heterogeneously dense which may obscure small masses. ULTRASOUND TECHNIQUE: Targeted ultrasound of the right upper medial breast was performed. No evidence of cystic or solid masses or acoustic shadowing identified us Wilda Jones AUTOMATIC CENTRIFUGAL STATION OPERATOR IMG US PROCEDURES Edited Re sult - Final * (ABNORMAL) MG Mammo Digital Diagnostic w Wilver Right (12/22/2024 10:42 AM EDT) Anatomical Region Laterality Modality Breast Right Mammography Impressions 12/22/2024 11:04 AM EDT Persistent asymmetry in the upper medial right breast on additional views without ultrasonographic correlation in the background of heterogeneously dense fibroglandular tissues. MRI examination is recommended for further assessment. Findings and recommendations were conveyed to the patient. Ordering provider would refer the patient for the breast MRI. BI-RADS CATEGORY: 0 - INCOMPLETE: NEED ADDITIONAL IMAGING EVALUATION RECOMMENDATION: Breast MRI is recommended. Breast MRI is recommended. Mammo Location: [facility], [address] [place] [address], [id number], . -------- FINAL REPORT -------- Dictated By: Alondra Raman Dictated Date: 12/22/2024 10:59 ET Assigned Physician: Alondra Raman Reviewed and Electronically Signed By: Alondra Raman Signed Date: 12/22/2024 11:04 ET Workstation ID: [id number] Transcribed By: Self Edit Transcribed Date: 12/22/2024 10:59 ET Narrative 12/22/2024 11:04 AM EDT Diagnostic mammogram of the right breast. Targeted right breast ultrasound. CLINICAL: 49 years old, Female, focal asymmetry in the upper inner right breast on screening exam. COMPARISON: Multiple prior screening mammograms, latest from 11/29/2024. FINDINGS: MAMMOGRAPHY TECHNIQUE: Spot compression views of the right breast in CC and MLO projection as well as full field striped lateral view were obtained digitally with 2-D C views and 3-D mammogram (digital breast tomosynthesis). Focal asymmetry in the upper medial breast persists on the additional views. There is no evidence of new suspicious mass or architectural distortion. No worrisome calcifications are evident. BREAST DENSITY: C - The breasts are heterogeneously dense which may obscure small masses. ULTRASOUND TECHNIQUE: Targeted ultrasound of the right upper medial breast was performed. No evidence of cystic or solid masses or acoustic shadowing identified us Wilda Jones AUTOMATIC CENTRIFUGAL STATION OPERATOR IMG BI PROCEDURES Edited Re sult - Final * (ABNORMAL) MG Mammo Digital Screening w Wilver bilat (11/29/2024 8:14 AM EDT) Anatomical Region Laterality Modality Breast Bilateral Mammography Impressions 11/30/2024 5:05 PM EDT 1. Left: No mammographic evidence of malignancy 2. Right: Indeterminate upper inner middle depth focal asymmetry 3. Heterogeneous breast parenchyma BI-RADS CATEGORY: 0 - INCOMPLETE - NEED ADDITIONAL IMAGING EVALUATION RECOMMENDATION: Additional right breast imaging recommended. Right breast CC and MLO spot compression, full-field ML, targeted ultrasound Mammo Location: [facility], [address] [place] [address], [id number], . -------- FINAL REPORT -------- Dictated By: Nico Pang Dictated Date: 11/30/2024 17:00 ET Assigned Physician: Nico Pang Reviewed and Electronically Signed By: Nico Pang Signed Date: 11/30/2024 17:05 ET Workstation ID: [id number] Transcribed By: Self Edit Transcribed Date: 11/30/2024 [...] heterogeneously dense which may obscure small masses. Wilda JACOBSEN IMG BI PROCEDURES Edited Re sult - Final from Last 3 Months Insurance [employer] Advance Directives * Full Code - Default (Latest Code Status on File) Date Activated Date Inactivated Comments 12/27/2024 7:01 AM 12/27/2024 3:05 PM This is or elida is used when code status has not been discussed with the patient, or code status is otherwise unknown/unconfirmed To update the patient's code status, place a code status order. Do not modify or discontinue any currently active code status orders. Care Teams Independent Freight Agent Relationship Specialty Start Date End Date Wilda Jones FNP [address] [place] [address] [place] [phone] PCP - General Nurse Practitioner 12/23/24
== END 2025-02-20 08:31 | disposition home or self-care (01) ==
LOC: HO.HMCFM 08:05
PROVIDERS: PCP Nurse Practitioner Family; Visit Provider Nurse Practitioner Family
DX: Z00.00 Encounter for general adult medical examination without abnormal findings (principal); Z84.81 Family history of carrier of genetic disease; Z98.890 Other specified postprocedural states; D64.9 Anemia, unspecified; Z80.0 Family history of malignant neoplasm of digestive organs; Z85.41 Personal history of malignant neoplasm of cervix uteri; Z92.89 Personal history of other medical treatment; Z15.89 Genetic susceptibility to other disease